=== PATIENT | male | born 1980 | race Caucasian/White ===

== ENCOUNTER 2016-06-26 18:47 | Inpatient (IN) | payer SELFPAY ==
[~2016-06-26] VITALS: Ht 167.6 cm; Wt 67.7 kg
[2016-06-26] MEDS ORDERED: ACETAMINOPHEN 325 MG TAB PO PRN (19:55)
[2016-06-26] MEDS ORDERED: LORAZEPAM 2 MG/ML VIAL IM PRN (19:55)
[2016-06-26] MEDS ORDERED: HALOPERIDOL 5 MG/ML VIAL IM PRN (19:55)
[2016-06-26] MEDS ORDERED: DIPHENHYDRAMINE 50 MG CAP PO PRN (19:55)
[2016-06-26] MEDS ORDERED: LORAZEPAM 2 MG TAB PO PRN (19:55)
[2016-06-26] MEDS ORDERED: HALOPERIDOL 5 MG TAB PO PRN (19:55)
[2016-06-26] MEDS ORDERED: DIPHENHYDRAMINE 50 MG/ML VIAL IM PRN (19:55)
[2016-06-26] MEDS ORDERED: MAG HYDROX 30 ML UDC PO PRN (19:55)
[2016-06-26] MEDS ORDERED: ALU/MAG/SIM 30 ML UDC PO PRN (19:55)
[2016-06-26] MEDS ORDERED: **NOTE TO NURSE XX SCH (20:00)
[2016-06-26 20:04] VITALS: BP_SYST 128; RESP 20; TEMP 98.6; BMI 24.1
[2016-06-26] MEDS ORDERED: Ibuprofen 600 MG TAB PO PRN (21:45)
[2016-06-26] MEDS: TRAZODONE 50 MG TAB PO PRN (22:14)
[2016-06-27] MEDS: NICOTINE 21 MG/24 HR TRANSDERM SCH (09:00)
[2016-06-27] MEDS: GABAPENTIN 400 MG CAP PO SCH ×3 (11:57→21:57)
[2016-06-27] MEDS: TRAMADOL 50 MG TAB PO PRN (11:58)
[2016-06-27] MEDS: SERTRALINE 50 MG TAB PO SCH (12:43)
[2016-06-27 19:02] VITALS: BP_SYST 100; RESP 20; TEMP 98
[2016-06-27] MEDS: TRAZODONE 50 MG TAB PO PRN (23:34)
[2016-06-28] MEDS: NICOTINE 21 MG/24 HR TRANSDERM SCH ×2 (09:00→09:39)
[2016-06-28] MEDS: SERTRALINE 50 MG TAB PO SCH (09:18)
[2016-06-28] MEDS: GABAPENTIN 400 MG CAP PO SCH ×2 (09:28→16:34)
[2016-06-28] MEDS: TRAMADOL 50 MG TAB PO PRN (09:30)
[2016-06-28 11:43] VITALS: BP_SYST 100; RESP 20; TEMP 98
[2016-06-28 11:54] VITALS: BP_SYST 100; RESP 20; TEMP 98
[2016-06-28 12:58] VITALS: BP_SYST 101; RESP 18; TEMP 97.4
[2016-06-28 17:35] VITALS: BP_SYST 101; RESP 18; TEMP 97.4
== END 2016-06-28 17:45 | disposition home or self-care (01) | DRG 882 ==
LOC: ENRESERVTM → ENRESERVDT → PSY 19:50
PROVIDERS: ADMIT Psychiatry & Neurology Psychiatry; ATTEND Psychiatry & Neurology Psychiatry
DX: F43.10 Post-traumatic stress disorder, unspecified (principal); F15.14 Other stimulant abuse with stimulant-induced mood disorder; G89.4 Chronic pain syndrome; G62.9 Polyneuropathy, unspecified